=== PATIENT | male | born 1960 | race Caucasian/White ===

== ENCOUNTER → 2023-12-17 09:55 | Outpatient (REF) | payer BC, SELFPAY | LOC: HWRAD 09:55 | PROVIDERS: ATTENDING PHYSICIAN Nurse Practitioner | DX: R13.10 Dysphagia, unspecified (principal) | CPT/HCPCS: 76536 ==

== ENCOUNTER → 2024-07-03 08:47 | Outpatient (REF) | payer BC, SELFPAY | LOC: HWRAD 08:47 | PROVIDERS: ATTENDING PHYSICIAN Otolaryngology; FAMILY PHYSICIAN Nurse Practitioner Adult Health | DX: I45.10 Unspecified right bundle-branch block (principal); I44.4 Left anterior fascicular block; E04.1 Nontoxic single thyroid nodule | CPT/HCPCS: 76536; 93306 ==